=== PATIENT | female | born 2000 | race Caucasian/White ===

== ENCOUNTER 2020-02-25 17:23 | Emergency (ER) | payer BC ==
[2020-02-25] MEDS ORDERED: Albuterol 0.083% 2.5 MG/3 ML Neb Soln NEB ONE (17:52)
[2020-02-25] MEDS ORDERED: predniSONE 20 MG Tab PO ONE (17:52)
--- NOTE | 2020-02-25 18:21 | EDM.PDOC ---
ED HPI GENERAL MEDICAL PROBLEM - General Chief Complaint: Respiratory Problem Stated Complaint: SOB/ASTHMA ATTACK Time Seen by Provider: 02/25/20 17:42 Source of Information: Reports: Patient, RN Notes Reviewed History Limitations: Reports: No Limitations - History of Present Illness INITIAL COMMENTS - FREE TEXT/NARRATIVE: Patient is a 19 year old female who presents to the ED for her ongoing shortness of breath. Patient notes that she has a history of asthma and bulimia nervosa. Patient notes for the past few days however she has had increased shortness of breath, chest tightness. She was seen at the walk-in clinic, had a chest x-ray done yesterday and everything seemed to be within normal limits. She is not sent home with any medications. Her asthma was exercise-induced when she was a younger child. She does have albuterol inhaler, and a steroid inhaler at home that she uses as it is directed. She did have COVID-19 in November. She does note that over the holidays, she indulged a little more than she would have liked to, so her bulimia kicked in and she was doing a lot of binging and purging. She notes sometimes after bouts of her binging and purging, she does get some mild shortness of breath or chest discomfort. She is not exactly sure why. She comes to the ER today, and she seemed to be a little bit anxious, and was hyperventilating on the way to the ER room. She is complaining of her legs being achy or tingly. She is not having any fevers or chills, cough or or nausea/vomiting/diarrhea. She has a primary care provider at [place] in [facility]. Middle Chest Pain Score (Numeric/FACES): 7 - Related Data Allergies Allergy/AdvReac Type Severity Reaction Status Date / Time No Known Allergies Allergy Verified 02/25/20 17:32 Home Meds: Home Meds Albuterol Sulfate [Proair Hfa] 8.5 gm IH DAILY PRN 02/25/20 [History] Albuterol [Proventil Neb Soln] 2.5 mg NEB QIDRT PRN #1 box 02/25/20 [Rx] Amphetamine/Dextroamphetamine [Adderall XR] 30 mg PO DAILY 02/25/20 [History] FLUoxetine [PROzac] 10 mg PO DAILY 02/25/20 [History] Fluticasone/Salmeterol [Advair HFA 115-21 MCG] 2 puff INH BID 02/25/20 [History] lamoTRIgine [Lamotrigine] 150 mg PO DAILY 02/25/20 [History] predniSONE 20 mg PO ASDIRECTED #15 tab 02/25/20 [Rx] traZODone HCl [Trazodone HCl] 50 mg PO BEDTIME 02/25/20 [History] Past Medical History Respiratory History: Reports: Asthma Psychiatric History: Reports: Anxiety, Depression, Eating Disorders (bulimia nervosa) - Infectious Disease History Infectious Disease History: Reports: Novel Coronavirus (November 2019) Social & Family History - Tobacco Use Tobacco Use Status *Q: Never Tobacco User - Recreational Drug Use Recreational Drug Use: No ED ROS GENERAL - Review of Systems Review Of Systems: Comprehensive ROS is negative, except as noted in HPI. ED EXAM, GENERAL - Physical Exam Exam: See Below Exam Limited By: No Limitations General Appearance: Alert, WD/WN, No Apparent Distress Respiratory/Chest: No Respiratory Distress, Lungs Clear, Normal Breath Sounds, No Accessory Muscle Use, Chest Non-Tender Cardiovascular: Normal Peripheral Pulses, Regular Rate, Rhythm, No Murmur GI/Abdominal: Normal Bowel Sounds, Soft, Non-Tender, No Distention, No Mass Neurological: Alert, Oriented, Normal Cognition, No Motor/Sensory Deficits Psychiatric: Normal Affect, Normal Mood, Anxious (mild, generalized) Skin Exam: Warm, Dry, Intact, Normal Color, No Rash Course - Vital Signs Last Recorded V/S: Last Vital Signs Temp 98.9 F 02/25/20 17:30 Pulse 75 02/25/20 17:30 Resp 16 02/25/20 17:30 BP 120/78 02/25/20 17:30 Pulse Ox 99 02/25/20 17:30 - Orders/Labs/Meds Orders: Active Orders 24 hr Category Date Time Status RT Aerosol Therapy [RC] ASDIRECTED Care 02/25/20 17:52 Ordered CBC WITH AUTO DIFF [HEME] Stat Lab 02/25/20 17:51 Ordered COMPREHENSIVE METABOLIC PN,CMP [CHEM] Stat Lab 02/25/20 17:51 Ordered MAGNESIUM [CHEM] Stat Lab 02/25/20 17:51 Ordered predniSONE Med 02/26/20 17:52 Once 40 mg PO ONETIME ONE Medication Orders Prednisone (Prednisone) 40 mg PO ONETIME ONE Stop: 02/26/20 17:53 Meds: Medications Generic Name Dose Route Start Last Admin Trade Name Freq PRN Reason Stop Dose Admin Prednisone 40 mg 02/26/20 17:52 Prednisone PO 02/26/20 17:53 ONETIME ONE Discontinued Medications Generic Name Dose Route Start Last Admin Trade Name Freq PRN Reason Stop Dose Admin Albuterol 2.5 mg 02/25/20 17:52 Proventil Neb Soln NEB 02/25/20 17:53 ONETIME ONE - Re-Assessments/Exams Free Text/Narrative Re-Assessment/Exam: 02/25/20 18:37 Patient presents to the ED for the evaluation of her ongoing shortness of breath. I do believe there is an aspect of exacerbation of her asthma going on and she has no respiratory wheezing, but does feel the shortness of breath. She will be placed on a course of steroids, given an nebulizer compressor for home use, she will be given an albuterol neb in the ER and have her follow-up with her regular care provider, after the course of steroids has been done for further evaluation. Departure - Departure Time of Disposition: 18:39 Disposition: Home, Self-Care 01 Condition: Good Clinical Impression: Exacerbation of asthma Qualifiers: Asthma severity: mild Asthma persistence: unspecified Qualified Code(s): J45.901 - Unspecified asthma with (acute) exacerbation - Discharge Information *PRESCRIPTION DRUG MONITORING PROGRAM REVIEWED*: No *COPY OF PRESCRIPTION DRUG MONITORING REPORT IN PATIENT SANNA: No Prescriptions: predniSONE 20 mg PO ASDIRECTED #15 tab Albuterol [Proventil Neb Soln] 2.5 mg NEB QIDRT PRN #1 box PRN Reason: Shortness Of Breath Instructions: Asthma, Adult, [id number] Referrals: PCP,Not In Area [Primary Care Provider] - Additional Instructions: You were seen in the ER today for your increasing shortness of breath. This is thought likely due to an exacerbation of your existing asthma. You were given a prescription of albuterol for nebulizer use, and a nebulizer in the ER. You will need to go to ED, no drug and [place] tomorrow to supervisor opening and picking the albuterol and use as directed, 1 Nebules 4 times a day as needed for further shortness of breath. You were given a prescription of prednisone as well, please take as directed until gone. Please take all of your other oral inhalers such as your steroid inhaler as previously prescribed. If you are using the nebulizer for albuterol, you do not need to use your albuterol inhaler at the same time. Recommend you follow-up with your regular care provider, sometime after the course of steroids has been done, for reevaluation and to make sure your symptoms are getting better as expected. Please return to the ER at any time if symptoms change or worsen. Sepsis Event Note (ED) - Evaluation Sepsis Screening Result: No Definite Risk - Focused Exam Vital Signs: Vital Signs Temp Pulse Resp BP Pulse Ox 02/25/20 17:30 98.9 F 75 16 120/78 99 - My Orders Last 24 Hours: My Active Orders 02/25/20 17:51 CBC WITH AUTO DIFF [HEME] Stat COMPREHENSIVE METABOLIC PN,CMP [CHEM] Stat MAGNESIUM [CHEM] Stat 02/25/20 17:52 RT Aerosol Therapy [RC] ASDIRECTED 02/26/20 17:52 predniSONE 40 mg PO ONETIME ONE - Assessment/Plan Last 24 Hours: My Active Orders 02/25/20 17:51 CBC WITH AUTO DIFF [HEME] Stat COMPREHENSIVE METABOLIC PN,CMP [CHEM] Stat MAGNESIUM [CHEM] Stat 02/25/20 17:52 RT Aerosol Therapy [RC] ASDIRECTED 02/26/20 17:52 predniSONE 40 mg PO ONETIME ONE
[2020-02-26] MEDS ORDERED: predniSONE 20 MG Tab PO ONE (17:52)
== END 2020-02-25 18:55 | disposition home or self-care (01) ==
LOC: JD.ED 17:23
DX: J45.901 Unspecified asthma with (acute) exacerbation (principal); F41.9 Anxiety disorder, unspecified; F32.9 Major depressive disorder, single episode, unspecified; Z86.16 Personal history of COVID-19; Z79.899 Other long term (current) drug therapy
CPT/HCPCS: 36415; 80053; 83735; 85025; 94640; 99285; J7512; 99283

== ENCOUNTER 2024-01-01 09:19 | Emergency (ER) | payer BC ==
[2024-01-01] MEDS: Albuterol/Ipratropium 3.0-0.5 MG/3 ML Neb Soln NEB ONE ×3 (11:09→16:03)
[2024-01-01] MEDS: methylPREDNISolone Sodium Succinate 125 MG/2 ML SDV IVPUSH ONE (11:23)
[2024-01-01 14:43] LABS: BASOPHILS PERCENT AUTO 0.2 % (0.0-1.0); EOSINOPHILS PERCENT AUTO 0.2 % (0.0-6.0); HEMATOCRIT 43.3 % (37.0-47.0); IMMATURE GRAN PERCENT AUTO 0.6 % (0.0-0.4); LYMPHOCYTES ABSOLUTE AUTO 0.9 K/mm3 (1.0-4.8); LYMPHOCYTES PERCENT AUTO 5.4 % (24.0-44.0); MEAN CORPUSCULAR HEMOGLOBIN 28.7 pg (28.0-32.0); MEAN CORPUSCULAR HGB CONC 32.3 g/dl (32.0-36.0); MEAN CORPUSCULAR VOLUME 88.9 fl (83.0-99.0); MEAN PLATELET VOLUME 8.5 fl (9.4-12.3); MONOCYTES ABSOLUTE AUTO 0.1 K/mm3 (0.0-0.8); MONOCYTES PERCENT AUTO 0.9 % (0.0-8.0); NEUTROPHILS PERCENT AUTO 92.7 % (41.0-71.0); PLATELET COUNT,PLT 382 K/mm3 (150-400); RED BLOOD CELL COUNT 4.87 M/mm3 (4.10-5.30); WHITE BLOOD CELL COUNT,WBC 16.21 K/mm3 (3.9-11.3)
[2024-01-01 14:57] LABS: ANION GAP 16.2 (5-15); BUN/CREATININE RATIO 11.3 (14-18); CALCIUM 9.8 mg/dL (8.5-10.1); CREATININE 0.8 mg/dL (0.55-1.02); EST CRCL DRUG DOSING (CG) 90.47 mL/min; POTASSIUM,K 4.2 mEq/L (3.5-5.1)
== END 2024-01-01 17:35 | disposition home or self-care (01) ==
LOC: JD.ED 09:19
DX: J45.909 Unspecified asthma, uncomplicated (principal); Z79.899 Other long term (current) drug therapy
CPT/HCPCS: 36415; 71046; 80048; 84703; 85025; 93005; 94640; 96374; 99285; J2919; J7620-GY